=== PATIENT | male | born 1970 | race Two or more races ===

== ENCOUNTER 2025-07-05 18:24 | Emergency (ER) | payer BC ==
[~2025-07-05] VITALS: Ht 175.3 cm; Wt 100.0 kg
[2025-07-05 18:26] VITALS: O2SAT 98
[2025-07-05] MEDS: LACTATED RINGERS 1,000 ML IV ONE (18:51)
[2025-07-05 19:05] LABS: BASOPHILS % 0.6 % (0.0-2.0); EOSINOPHILS % 1.6 % (0.0-5.0); HEMATOCRIT. 41.6 % (42.0-52.0); HEMOGLOBIN. 14.4 g/dL (14.0-18.0); LYMPHOCYTES % 31.8 % (20.0-50.0); MEAN PLATELET VOLUME 6.9 fl (7.4-10.4); MONOCYTES % 5.1 % (2.0-8.0); NEUTROPHILS % 60.9 % (40.0-76.0); PLATELET 231 x1000/uL (130-400); RED BLOOD CELL COUNT 4.64 mill/uL (4.7-6.1); RED CELL DISTRIBUTION WIDTH 13.6 % (11.6-14.6)
[2025-07-05 19:22] LABS: CREATININE 1.2 mg/dL (0.6-1.3); UREA NITROGEN BLOOD 12 mg/dL (9-23)
[2025-07-05 19:23] LABS: ETHANOL BLOOD < 10 mg/dL (<10)
[2025-07-05 19:24] LABS: ASPARTATE AMINOTRANSFERASE 24 IU/L (<34); BILIRUBIN DIRECT 0.1 mg/dL (<=3.0); BILIRUBIN TOTAL 0.5 mg/dL (0.1-1.0); PROTEIN TOTAL 7.8 g/dL (6.0-8.3); TROPONIN I HIGH SENSITIVITY < 4 ng/L (3.0-53)
[2025-07-05 20:26] VITALS: BP 134/87; PULSE 72; RESP 14; TEMP 37; O2SAT 98
== END 2025-07-05 20:51 | disposition home or self-care (01) ==
LOC: ER 19:35
DX: T67.1XXA Heat syncope, initial encounter (principal); I10 Essential (primary) hypertension; X30.XXXA Exposure to excessive natural heat, initial encounter; Y93.89 Activity, other specified; Y92.89 Other specified places as the place of occurrence of the external cause; Y99.8 Other external cause status
CPT/HCPCS: 80076; 80048; 80320; 82550; 83880; 83735; 85025; 84484; 36415; 71045; 93005; 96360; 99285; J7120; G0480